=== PATIENT | male | born 1945 | race Caucasian/White ===

== ENCOUNTER → 2016-11-16 | Outpatient (CLI) | payer MEDICARE, OTHER ==
[~2016-11-16] MED LIST: AMLO10TA2 PO; GADOBUTROL 10mMol/10ml INJECTION IV ONE; HYDR-3989 PO; LEVE500T26 PO; LEVO50TA11 PO; LISI10TA7 PO; LORA0.5T2 PO; MIRT15TA6 PO; SALINE FLUSH 10ml SYRINGE ONE; TAMS0.4C47 PO
--- NOTE | 2016-11-16 10:11 | DI ---
Indication: ITS.REASON: Worsening headaches PROCEDURE: MRI BRAIN W/WO CONTRAST: Encounter: Subsequent Comparisons: Brain MRI dated August 17, 2016 Technique: Multiplanar, multisequence, MR imaging of the head with and without contrast was acquired. Contrast: 7.5 mL of Gadavist FINDINGS: No acute stroke identified on the diffusion-weighted sequences. Again there is extensive postoperative change in the right cerebral hemisphere with cystic encephalomalacia in the right temporal and parietal lobes. There is a fluid fluid level within the posterior aspect of the right lateral ventricle could be due to debris or subacute hemorrhage. This is new from the prior exam. The overall degree of ventricular dilatation is slightly worsened. Extensive encephalomalacia redemonstrated in the right cerebral hemisphere. There is developing leftward midline shift seen on axial image #15 measuring 5 mm. On the FLAIR sequences there is new abnormal increased FLAIR signal throughout the right lateral ventricle involving the temporal and occipital horns which is a significant change in the prior study. The left lateral ventricle shows normal suppression of the CSF signal. These findings raise strong concern for subacute blood products within the ventricle. There is T1 intermediate signal intensity within the ventricle with some areas of slightly higher intensity at the posterior aspect. Postcontrast images again show rim enhancement surrounding the ventricle. There is a new area of nodular enhancing tumor seen on axial image #14 measuring 1.6 cm in diameter in the medial temporal lobe. There is also increasing enhancement in the subcortical posterior parietal lobe on axial image #17 measuring 1.8 x 1.3 cm in size. Some nodular enhancement along the inferior aspect of the occipital horn of the right lateral ventricle is also new. Impression: 1. Multifocal tumor recurrence as described above with new abnormal signal filling of the right ventricular system suspicious for subacute hemorrhage. 2. Development of 5 mm leftward midline shift. .
== END ==
LOC: IMA 07:57
PROVIDERS: ATTEND Internal Medicine Hematology & Oncology
DX: C71.3 Malignant neoplasm of parietal lobe (principal); G93.89 Other specified disorders of brain; R90.89 Other abnormal findings on diagnostic imaging of central nervous system
CPT/HCPCS: 70553; A9585